=== PATIENT | female | born 1965 | race Caucasian/White ===

== ENCOUNTER 2017-06-16 18:00 | Emergency (ER) | payer MEDICAID ==
[~2017-06-16] VITALS: Ht 152.4 cm; Wt 60.0 kg
[~2017-06-16 18:00] MED LIST: FLUO-124 PO; LORA1TAB PO
[2017-06-16] MEDS ORDERED: LORAZEPAM 1MG TABLET PO ONE (23:45)
[2017-06-16] MEDS ORDERED: MAGNESIUM/ALUMINUM HYDROXIDE/SIMETHICONE 30ML UDC PO ONE (23:45)
[2017-06-17 00:06] LABS: BASOPHILS % 0.8 % (0.0-2.0); CLARITY URINE CLEAR (CLEAR); COLOR URINE YELLOW (YELLOW); EOSINOPHILS % 4.1 % (0.0-5.0); GLUCOSE URINE NEGATIVE (NEGATIVE); HEMOGLOBIN. 13.1 g/dL (12.0-16.0); KETONES URINE NEGATIVE (NEGATIVE); LEUKOCYTE ESTERASE URINE NEGATIVE (NEGATIVE); LYMPHOCYTES % 29.4 % (20.0-50.0); MEAN CORPUSCULAR HEMOGLOBIN 29.9 pg (28.0-32.0); MEAN CORPUSCULAR VOLUME 88.7 fL (81.0-99.0); MEAN PLATELET VOLUME 8.6 fl (7.4-10.4); MONOCYTES % 7.6 % (2.0-8.0); NEUTROPHILS % 58.1 % (40.0-76.0); NITRITE URINE NEGATIVE (NEGATIVE); OCCULT BLOOD URINE NEGATIVE (NEGATIVE); PLATELET 279 x1000/uL (130-400); PROTEIN URINE 3+ (NEGATIVE); RED BLOOD CELL COUNT 4.39 mill/uL (4.2-5.4); RED CELL DISTRIBUTION WIDTH 13.4 % (11.6-14.6); SPECIFIC GRAVITY URINE 1.015 (1.005-1.030); UROBILINOGEN URINE 0.2 E.U./dL (0.2-1.0)
[2017-06-17 00:13] LABS: CHLORIDE 105 mEq/L (98-107)
[2017-06-17 00:22] LABS: CARBON DIOXIDE 30 mEq/L (21-32)
[2017-06-17 01:15] VITALS: BP 109/62
== END 2017-06-17 01:15 | disposition home or self-care (01) ==
LOC: ER 18:00
DX: F41.9 Anxiety disorder, unspecified (principal); R10.13 Epigastric pain; F32.9 Major depressive disorder, single episode, unspecified
CPT/HCPCS: 36415; 80053; 81001; 81003; 85025; 99284

== ENCOUNTER 2019-01-01 15:27 | Emergency (ER) | payer MEDICAID ==
[~2019-01-01] VITALS: Ht 157.5 cm; Wt 53.0 kg
[~2019-01-01 15:27] MED LIST changes: +ACYC200C PO; +ATOR10TA69 PO; +DEXA4TAB PO; +DILT120C88 PO; +GABA-529 PO; +LOPE2CAP PO
[2019-01-01 20:29] VITALS: BP 122/82
== END 2019-01-01 22:30 | disposition left against medical advice (07) ==
LOC: ER 17:09
DX: Z53.21 Procedure and treatment not carried out due to patient leaving prior to being seen by health care provider (principal)

== ENCOUNTER 2019-07-16 11:08 | Inpatient (IN) | payer MEDICAID ==
[~2019-07-16] VITALS: Ht 182.9 cm; Wt 41.7 kg
[2019-07-16 12:25] LABS: BASOPHILS % 1.3 % (0.0-2.0); EOSINOPHILS % 4.7 % (0.0-5.0); HEMATOCRIT. 42.3 % (36.0-48.0); HEMOGLOBIN. 13.8 g/dL (12.0-16.0); LYMPHOCYTES % 10.7 % (20.0-50.0); MEAN CORPUSCULAR HEMOGLOBIN 31.8 pg (28.0-32.0); MEAN CORPUSCULAR VOLUME 97.4 fL (81.0-99.0); MEAN PLATELET VOLUME 8.5 fl (7.4-10.4); MONOCYTES % 8.1 % (2.0-8.0); NEUTROPHILS % 75.2 % (40.0-76.0); PLATELET 277 x1000/uL (130-400); RED BLOOD CELL COUNT 4.34 mill/uL (4.2-5.4)
[2019-07-16 12:28] LABS: CHLORIDE 94 mEq/L (98-107)
[2019-07-16 12:36] LABS: PHOSPHORUS 3.5 mg/dL (2.5-4.9)
[2019-07-16] MEDS ORDERED: IPRATROPIUM BROMIDE (0.02%) 0.5MG/2.5ML NEB HHN STA (13:02)
[2019-07-16] MEDS ORDERED: ALBUTEROL (0.083%) 2.5MG/3ML NEB HHN STA (13:02)
[2019-07-16 16:00] VITALS: BP 134/76
[2019-07-16] MEDS ORDERED: ACETAMINOPHEN 325MG TABLET PO PRN (16:45)
[2019-07-16] MEDS ORDERED: CLONIDINE 0.1MG TABLET PO PRN ×2 (16:45→17:15)
[2019-07-16 16:49] VITALS: BP 134/76
[2019-07-16] MEDS ORDERED: MAGNESIUM/ALUMINUM HYDROXIDE/SIMETHICONE 30ML UDC PO PRN (17:15)
[2019-07-16] MEDS ORDERED: GUAIFENESIN 200MG/10ML SUGAR FREE UDC PO PRN (17:15)
[2019-07-16] MEDS ORDERED: ONDANSETRON HCL 4MG/2ML INJ IV PRN (17:15)
[2019-07-16] MEDS ORDERED: IPRATROPIUM/ALBUTEROL 0.5-3(2.5)MG/3ML NEB NEB PRN (17:15)
[2019-07-16] MEDS ORDERED: PNEUMOCOCCAL 23-VAL P-SAC VAC 0.5 ML IM ONE (17:15)
[2019-07-16 20:00] VITALS: BP 129/85
[2019-07-16] MEDS: DIPHENHYDRAMINE 50MG/ML VIAL IV PRN (20:32)
[2019-07-16] MEDS: SODIUM CHLORIDE 0.9% INJ 3ML FLUSH IVF SCH (20:32)
[2019-07-17] VITALS: BP 132/78
[2019-07-17 04:00] VITALS: BP 131/83
[2019-07-17] MEDS: DIPHENHYDRAMINE 50MG/ML VIAL IV PRN ×2 (05:49→20:35)
[2019-07-17] MEDS: SODIUM CHLORIDE 0.9% INJ 3ML FLUSH IVF SCH ×3 (05:49→20:36)
[2019-07-17 07:32] LABS: BASOPHILS % 1.1 % (0.0-2.0); EOSINOPHILS % 5.4 % (0.0-5.0); HEMATOCRIT. 36.8 % (36.0-48.0); HEMOGLOBIN. 12.2 g/dL (12.0-16.0); LYMPHOCYTES % 14.7 % (20.0-50.0); MEAN CORPUSCULAR HEMOGLOBIN 32.1 pg (28.0-32.0); MEAN CORPUSCULAR VOLUME 97.1 fL (81.0-99.0); MEAN PLATELET VOLUME 8.3 fl (7.4-10.4); MONOCYTES % 8.1 % (2.0-8.0); NEUTROPHILS % 70.7 % (40.0-76.0); PLATELET 245 x1000/uL (130-400); RED BLOOD CELL COUNT 3.79 mill/uL (4.2-5.4); RED CELL DISTRIBUTION WIDTH 16.2 % (11.6-14.6)
[2019-07-17 07:51] LABS: PHOSPHORUS 4.8 mg/dL (2.5-4.9)
[2019-07-17 08:00] VITALS: BP 122/78
[2019-07-17] MEDS ORDERED: POLY15DR33 EACHEYE (10:27)
[2019-07-17] MEDS ORDERED: ESOM20CA37 MT (10:27)
[2019-07-17] MEDS ORDERED: ONDA8TAB13 MT (10:27)
[2019-07-17] MEDS ORDERED: LORA0.5T2 MT (10:27)
[2019-07-17] MEDS ORDERED: ACYC200C MT (10:27)
[2019-07-17] MEDS ORDERED: ROPI0.5T MT (10:27)
[2019-07-17] MEDS ORDERED: MIDO5TAB MT (10:27)
[2019-07-17] MEDS ORDERED: B25 MT (10:27)
[2019-07-17] MEDS ORDERED: LOPE2CAP MT (10:27)
[2019-07-17] MEDS ORDERED: SUCR1TAB30 MT (10:29)
[2019-07-17 11:59] VITALS: BP 124/89
[2019-07-17 12:49] LABS: INR 1.1; PARTIAL THROMBOPLASTIN TIME 26.8 sec (23.4-31.0); PROTHROMBIN TIME 11.3 sec (9.6-11.0)
[2019-07-17 16:00] VITALS: BP 128/81
[2019-07-17 20:00] VITALS: BP 136/89
[2019-07-17] MEDS: ACETAMINOPHEN 325MG TABLET PO PRN (20:35)
[2019-07-18] VITALS: BP 122/87
[2019-07-18] MEDS: DIPHENHYDRAMINE 50MG/ML VIAL IV PRN ×2 (00:35→08:11)
[2019-07-18] MEDS: ACETAMINOPHEN 325MG TABLET PO PRN ×2 (00:35→12:46)
[2019-07-18 04:00] VITALS: BP 137/88
[2019-07-18] MEDS: SODIUM CHLORIDE 0.9% INJ 3ML FLUSH IVF SCH ×2 (06:08→14:11)
[2019-07-18 08:00] VITALS: BP 133/90
[2019-07-18] MEDS ORDERED: SODIUM BICARBONATE 4% (2.4MEQ) 5ML VIAL IV ONE (08:46)
[2019-07-18 11:56] VITALS: BP 124/82
[2019-07-18 15:35] VITALS: BP 124/82
== END 2019-07-18 16:28 | disposition home or self-care (01) | DRG 721 ==
LOC: ER 11:08 → 8WST 13:18 → EDBEDREQ 13:21 → ENRESERV 14:51
PROVIDERS: ADMIT Internal Medicine; ATTEND Internal Medicine
PROC: 5A1D70Z Performance of Urinary Filtration, Intermittent, Less than 6 Hours Per Day (ICD-10-PCS; 2019-07-17)
PROC: 0W9B3ZZ Drainage of Left Pleural Cavity, Percutaneous Approach (ICD-10-PCS; principal; 2019-07-18)
DX: T80.211A Bloodstream infection due to central venous catheter, initial encounter (principal); J96.90 Respiratory failure, unspecified, unspecified whether with hypoxia or hypercapnia; I13.2 Hypertensive heart and chronic kidney disease with heart failure and with stage 5 chronic kidney disease, or end stage renal disease; I42.5 Other restrictive cardiomyopathy; E87.1 Hypo-osmolality and hyponatremia; E85.4 Organ-limited amyloidosis; Y83.8 Other surgical procedures as the cause of abnormal reaction of the patient, or of later complication, without mention of misadventure at the time of the procedure; Y92.89 Other specified places as the place of occurrence of the external cause; J45.909 Unspecified asthma, uncomplicated; I50.9 Heart failure, unspecified; F41.9 Anxiety disorder, unspecified; N08 Glomerular disorders in diseases classified elsewhere; N18.6 End stage renal disease; N25.81 Secondary hyperparathyroidism of renal origin; Z82.49 Family history of ischemic heart disease and other diseases of the circulatory system; Z99.2 Dependence on renal dialysis; F32.9 Major depressive disorder, single episode, unspecified; E21.3 Hyperparathyroidism, unspecified
CPT/HCPCS: 32555; 36415; 71045; 71250; 80048; 83615; 83735; 84100; 84484; 88108; 93005; 93970; 94640; 99285; J1200; J3490; J7611

== ENCOUNTER 2020-11-10 21:05 | Emergency (ER) | payer MEDICAID ==
[~2020-11-10] VITALS: Ht 152.4 cm; Wt 44.0 kg
[~2020-11-10 21:05] MED LIST changes: +ACYC200C MT; -ACYC200C PO; -ATOR10TA69 PO; +B25 MT; -DEXA4TAB PO; -DILT120C88 PO; +ESOM20CA37 MT; -FLUO-124 PO; +LOPE2CAP MT; -LOPE2CAP PO; +LORA0.5T2 MT; -LORA1TAB PO; +MIDO5TAB4 MT; +ONDA8TAB13 MT; +POLY15DR33 EACHEYE; +ROPI0.5T6 MT; +SUCR1TAB30 MT
[2020-11-10] MEDS ORDERED: TRAMADOL 50MG TABLET PO ONE (22:45)
[2020-11-10 23:38] VITALS: BP 162/87
[2020-11-11 00:11] LABS: BASOPHILS % 0.9 % (0.0-2.0); EOSINOPHILS % 4.4 % (0.0-5.0); HEMATOCRIT. 31.5 % (36.0-48.0); HEMOGLOBIN. 10.5 g/dL (12.0-16.0); LYMPHOCYTES % 13.5 % (20.0-50.0); MEAN CORPUSCULAR HEMOGLOBIN 33.3 pg (28.0-32.0); MEAN PLATELET VOLUME 9.4 fl (7.4-10.4); MONOCYTES % 10.2 % (2.0-8.0); PLATELET 187 x1000/uL (130-400); RED BLOOD CELL COUNT 3.15 mill/uL (4.2-5.4); RED CELL DISTRIBUTION WIDTH 14.3 % (11.6-14.6)
[2020-11-11 00:23] LABS: CHLORIDE 99 mEq/L (98-107)
== END 2020-11-11 01:02 | disposition home or self-care (01) ==
LOC: ER 21:05
DX: M25.512 Pain in left shoulder (principal); R07.89 Other chest pain; M79.631 Pain in right forearm; R51.9 Headache, unspecified; N18.6 End stage renal disease; K76.9 Liver disease, unspecified; Z85.89 Personal history of malignant neoplasm of other organs and systems; Z92.21 Personal history of antineoplastic chemotherapy; Z99.2 Dependence on renal dialysis; W07.XXXA Fall from chair, initial encounter; Y93.89 Activity, other specified; Y92.018 Other place in single-family (private) house as the place of occurrence of the external cause
CPT/HCPCS: 36415; 71045; 73030; 73090; 73521; 80053; 85025; 93005; 99285

== ENCOUNTER 2021-02-19 13:51 | Inpatient (IN) | payer MEDICAID ==
[~2021-02-19] VITALS: Ht 160 cm; Wt 41.8 kg
[2021-02-19] MEDS ORDERED: ACETAMINOPHEN 325MG TABLET PO ONE (14:30)
[2021-02-19 15:38] LABS: BASOPHILS % 1.3 % (0.0-2.0); EOSINOPHILS % 3.5 % (0.0-5.0); HEMATOCRIT. 31.6 % (36.0-48.0); HEMOGLOBIN. 10.9 g/dL (12.0-16.0); LYMPHOCYTES % 14.5 % (20.0-50.0); MEAN CORPUSCULAR HEMOGLOBIN 34.8 pg (28.0-32.0); MEAN CORPUSCULAR VOLUME 100.8 fL (81.0-99.0); MEAN PLATELET VOLUME 10.2 fl (7.4-10.4); MONOCYTES % 10.8 % (2.0-8.0); NEUTROPHILS % 69.9 % (40.0-76.0); PLATELET 149 x1000/uL (130-400); RED BLOOD CELL COUNT 3.13 mill/uL (4.2-5.4); RED CELL DISTRIBUTION WIDTH 13.3 % (11.6-14.6)
[2021-02-19 15:43] LABS: CHLORIDE 104 mEq/L (98-107)
[2021-02-19] MEDS ORDERED: LEVOFLOXACIN 750MG PREMIX 150 ML IV ONE (16:15)
[2021-02-19] MEDS ORDERED: METRONIDAZOLE 500 MG PREMIX 100 ML IV ONE (16:15)
[2021-02-19 20:29] LABS: CLARITY URINE CLEAR (CLEAR); COLOR URINE YELLOW (YELLOW); KETONES URINE NEGATIVE (NEGATIVE); LEUKOCYTE ESTERASE URINE NEGATIVE (NEGATIVE); NITRITE URINE NEGATIVE (NEGATIVE); OCCULT BLOOD URINE 1+ (NEGATIVE); PH URINE 7.5 (4.5-8.0); PROTEIN URINE 3+ (NEGATIVE); UROBILINOGEN URINE 0.2 E.U./dL (0.2-1.0)
[2021-02-20] VITALS: BP 141/90
[2021-02-20] MEDS ORDERED: METRONIDAZOLE 500 MG PREMIX 100 ML IV SCH (01:00)
[2021-02-20] MEDS ORDERED: IPRATROPIUM/ALBUTEROL 0.5-3(2.5)MG/3ML NEB HHN PRN (13:15)
[2021-02-20] MEDS ORDERED: LORAZEPAM 0.5MG TABLET PO PRN (13:15)
[2021-02-20] MEDS ORDERED: HYDROCODONE/ACETAMINOPHEN 5/325MG TABLET PO PRN (13:15)
[2021-02-20] MEDS ORDERED: ACETAMINOPHEN 325MG TABLET PO PRN ×2 (13:15)
[2021-02-20] MEDS ORDERED: DOCUSATE SODIUM 100MG CAPSULE PO PRN (13:15)
[2021-02-20] MEDS ORDERED: CLONIDINE 0.1MG TABLET PO PRN (13:15)
[2021-02-20 14:41] LABS: INR 1.1; PROTHROMBIN TIME 11.4 sec (9.6-11.0)
[2021-02-20 18:17] LABS: HEPATITIS B SURFACE ANTIGEN NEGATIVE
[2021-02-20 18:47] LABS: HEPATITIS A AB IGM NEGATIVE (NEGATIVE)
[2021-02-20] MEDS ORDERED: CEFTRIAXONE 1 G PREMIX 50 ML IV SCH (20:00)
[2021-02-20 21:13] VITALS: BP 141/90
[2021-02-20] MEDS ORDERED: HEPARIN SODIUM 1,000 UNIT/1ML VIAL IV NR (21:18)
[2021-02-20] MEDS: SUCRALFATE 1G TABLET PO SCH (23:37)
[2021-02-20] MEDS: MIDODRINE HCL 5MG TABLET PO SCH (23:38)
[2021-02-20] MEDS: ROPINIROLE HCL 1MG TABLET PO SCH (23:59)
[2021-02-21] VITALS (7 sets, daily range): BP systolic 102–159; BP diastolic 54–92
[2021-02-21] MEDS: ONDANSETRON HCL 4MG/2ML INJ IV PRN ×2 (01:07→07:07)
[2021-02-21] MEDS: METRONIDAZOLE 500 MG PREMIX 100 ML IV SCH ×2 (01:47→09:41)
[2021-02-21] MEDS: MIDODRINE HCL 5MG TABLET PO SCH (05:29)
[2021-02-21] MEDS: ROPINIROLE HCL 1MG TABLET PO SCH ×2 (05:30→15:54)
[2021-02-21 07:26] LABS: BASOPHILS % 1.2 % (0.0-2.0); EOSINOPHILS % 2.6 % (0.0-5.0); HEMATOCRIT. 32.6 % (36.0-48.0); HEMOGLOBIN. 11.2 g/dL (12.0-16.0); LYMPHOCYTES % 14.2 % (20.0-50.0); MEAN CORPUSCULAR HEMOGLOBIN 34.1 pg (28.0-32.0); MEAN CORPUSCULAR VOLUME 99.6 fL (81.0-99.0); MEAN PLATELET VOLUME 10.5 fl (7.4-10.4); MONOCYTES % 6.1 % (2.0-8.0); NEUTROPHILS % 75.9 % (40.0-76.0); PLATELET 148 x1000/uL (130-400); RED BLOOD CELL COUNT 3.27 mill/uL (4.2-5.4); RED CELL DISTRIBUTION WIDTH 13.5 % (11.6-14.6)
[2021-02-21 07:40] LABS: FERRITIN 783 ng/mL (10-291)
[2021-02-21 07:53] LABS: VITAMIN B12 SERUM >2000 pg/mL pg/mL (211-911)
[2021-02-21 08:15] LABS: PHOSPHORUS 4.4 mg/dL (2.5-4.9)
[2021-02-21] MEDS: SUCRALFATE 1G TABLET PO SCH ×2 (08:27→15:12)
[2021-02-21] MEDS: GABAPENTIN 100MG CAPSULE PO SCH ×2 (08:27→15:12)
[2021-02-21] MEDS ORDERED: CEFTRIAXONE 1,000 MG in DEXTROSE 5% WATER 50 ML IV SCH (20:00)
== END 2021-02-21 17:30 | disposition home or self-care (01) | DRG 249 ==
LOC: ER 13:51 → EDBEDREQ 19:26 → ENRESERV 02-20 19:07 → 7WST 02-20 19:23 → 5WST 02-21 13:26
PROVIDERS: ADMIT Internal Medicine; ATTEND Internal Medicine
PROC: 5A1D70Z Performance of Urinary Filtration, Intermittent, Less than 6 Hours Per Day (ICD-10-PCS; 2021-02-20)
PROC: 0W9B3ZZ Drainage of Left Pleural Cavity, Percutaneous Approach (ICD-10-PCS; principal; 2021-02-21)
PROC: 5A1D70Z Performance of Urinary Filtration, Intermittent, Less than 6 Hours Per Day (ICD-10-PCS; 2021-02-21)
DX: K52.9 Noninfective gastroenteritis and colitis, unspecified (principal); J90 Pleural effusion, not elsewhere classified; C96.9 Malignant neoplasm of lymphoid, hematopoietic and related tissue, unspecified; R78.81 Bacteremia; E85.4 Organ-limited amyloidosis; N25.81 Secondary hyperparathyroidism of renal origin; E83.52 Hypercalcemia; E88.09 Other disorders of plasma-protein metabolism, not elsewhere classified; I25.10 Atherosclerotic heart disease of native coronary artery without angina pectoris; I42.5 Other restrictive cardiomyopathy; N18.6 End stage renal disease; K76.9 Liver disease, unspecified; D53.9 Nutritional anemia, unspecified; G25.81 Restless legs syndrome; Z20.822 Contact with and (suspected) exposure to COVID-19; I12.0 Hypertensive chronic kidney disease with stage 5 chronic kidney disease or end stage renal disease; Z99.2 Dependence on renal dialysis; Z82.49 Family history of ischemic heart disease and other diseases of the circulatory system; I31.3 Pericardial effusion (noninflammatory); K29.70 Gastritis, unspecified, without bleeding
CPT/HCPCS: 32555; 36415; 71045; 74176; 76604; 80048; 80053; 81003; 82270; 82607; 82728; 82746; 82962; 83540; 83550; 83605; 83735; 83880; 84100; 84484; 85025; 86705; 86709; 86803; 87340; 93005; 96365; 96366; 96368; 99285; J0696; J1644; J1956; J2405; J3490; J7060; U0003; U0005

== ENCOUNTER 2022-03-19 09:42 | Inpatient (IN) | payer MEDICAID, OTHER ==
[~2022-03-19] VITALS: Ht 152.4 cm; Wt 43.5 kg
[~2022-03-19 09:42] MED LIST changes: -ACYC200C MT; +ACYC200C31 MT
[2022-03-19 11:10] LABS: HEMATOCRIT. 26.6 % (36.0-48.0); HEMOGLOBIN. 8.8 g/dL (12.0-16.0); MEAN CORPUSCULAR HEMOGLOBIN 31.7 pg (28.0-32.0); MEAN CORPUSCULAR VOLUME 95.9 fL (81.0-99.0); MEAN PLATELET VOLUME 9.9 fl (7.4-10.4); PLATELET 284 x1000/uL (130-400); RED BLOOD CELL COUNT 2.78 mill/uL (4.2-5.4); RED CELL DISTRIBUTION WIDTH 14.5 % (11.6-14.6)
[2022-03-19 11:20] LABS: CHLORIDE 99 mEq/L (98-107)
[2022-03-19 11:21] LABS: INR 1.1; PROTHROMBIN TIME 11.4 sec (9.6-11.0)
[2022-03-19] MEDS ORDERED: PIPERACILLIN/TAZ 3.375G PREMIX 50 ML IV ONE (12:15)
[2022-03-19] MEDS ORDERED: VANCOMYCIN 1G PREMIX 200 ML IV ONE (12:15)
[2022-03-19 14:10] LABS: PLATELET ESTIMATE NORMAL
[2022-03-19] MEDS ORDERED: ZOLPIDEM TARTRATE 5MG TABLET PO PRN (15:30)
[2022-03-19] MEDS ORDERED: ACETAMINOPHEN 325MG TABLET PO PRN (15:30)
[2022-03-19] MEDS ORDERED: DIPHENHYDRAMINE 50MG/ML VIAL IV PRN (15:30)
[2022-03-19] MEDS ORDERED: CLONIDINE 0.1MG TABLET PO PRN (15:30)
[2022-03-19] MEDS ORDERED: ONDANSETRON HCL 4MG/2ML INJ IV PRN (15:30)
[2022-03-19] MEDS ORDERED: IPRATROPIUM/ALBUTEROL 0.5-3(2.5)MG/3ML NEB HHN PRN (15:30)
[2022-03-19 16:33] VITALS: BP 107/54
[2022-03-19] MEDS: MIDODRINE HCL 5MG TABLET PO SCH (17:16)
[2022-03-19] MEDS ORDERED: GENTAMICIN 120MG PREMIX 100 ML IV SCH (21:00)
[2022-03-19 22:00] VITALS: BP 96/47
[2022-03-19] MEDS: GABAPENTIN 100MG CAPSULE PO SCH (22:07)
[2022-03-19] MEDS: SODIUM CHLORIDE 0.9% INJ 3ML FLUSH IVF SCH (22:07)
[2022-03-19] MEDS: ROPINIROLE HCL 1MG TABLET PO SCH (22:08)
[2022-03-19 22:15] LABS: HEPATITIS B SURFACE ANTIGEN NEGATIVE
[2022-03-20 06:00] VITALS: BP 94/53
[2022-03-20] MEDS: GABAPENTIN 100MG CAPSULE PO SCH ×3 (06:07→23:05)
[2022-03-20] MEDS: ROPINIROLE HCL 1MG TABLET PO SCH ×3 (06:07→23:06)
[2022-03-20] MEDS: SODIUM CHLORIDE 0.9% INJ 3ML FLUSH IVF SCH ×3 (06:08→23:06)
[2022-03-20] MEDS: ACETAMINOPHEN 325MG TABLET PO PRN (06:08)
[2022-03-20 07:13] LABS: HEMATOCRIT. 24.2 % (36.0-48.0); MEAN CORPUSCULAR HEMOGLOBIN 31.3 pg (28.0-32.0); MEAN PLATELET VOLUME 10.1 fl (7.4-10.4); PLATELET 323 x1000/uL (130-400); RED BLOOD CELL COUNT 2.55 mill/uL (4.2-5.4); RED CELL DISTRIBUTION WIDTH 15.1 % (11.6-14.6)
[2022-03-20 08:00] VITALS: BP 104/52
[2022-03-20] MEDS: MIDODRINE HCL 5MG TABLET PO SCH ×3 (09:00→17:00)
[2022-03-20 12:00] VITALS: BP 108/50
[2022-03-20 16:00] VITALS: BP 102/52
[2022-03-20] MEDS: CEFAZOLIN 2,000 MG in DEXT 5% WATER 100 ML IV SCH (18:14)
[2022-03-20 20:00] VITALS: BP 106/56
[2022-03-20] MEDS ORDERED: EPOETIN ALFA 10000UNITS/ML VIAL SUBCUT SCH (21:00)
[2022-03-21] VITALS: BP 112/58
[2022-03-21 04:00] VITALS: BP 106/55
[2022-03-21 05:47] LABS: PLATELET ESTIMATE NORMAL
[2022-03-21] MEDS: SODIUM CHLORIDE 0.9% INJ 3ML FLUSH IVF SCH ×3 (06:00→21:45)
[2022-03-21] MEDS: GABAPENTIN 100MG CAPSULE PO SCH ×3 (06:47→21:44)
[2022-03-21] MEDS: ROPINIROLE HCL 1MG TABLET PO SCH ×3 (06:47→21:45)
[2022-03-21] MEDS: MIDODRINE HCL 5MG TABLET PO SCH ×3 (09:32→16:29)
[2022-03-21] MEDS ORDERED: LIDOCAINE HCL 1% 10 MG/ML 10ML VIAL ONE (11:10)
[2022-03-21 12:00] VITALS: BP 119/57
[2022-03-21 13:16] LABS: BASOPHILS % 0.8 % (0.0-2.0); EOSINOPHILS % 1.1 % (0.0-5.0); HEMATOCRIT. 23.1 % (36.0-48.0); HEMOGLOBIN. 7.8 g/dL (12.0-16.0); LYMPHOCYTES % 7.6 % (20.0-50.0); MEAN CORPUSCULAR HEMOGLOBIN 32.5 pg (28.0-32.0); MEAN CORPUSCULAR VOLUME 95.8 fL (81.0-99.0); MEAN PLATELET VOLUME 9.5 fl (7.4-10.4); MONOCYTES % 11.2 % (2.0-8.0); NEUTROPHILS % 79.3 % (40.0-76.0); PLATELET 360 x1000/uL (130-400); RED BLOOD CELL COUNT 2.41 mill/uL (4.2-5.4)
[2022-03-21 16:00] VITALS: BP 121/55
[2022-03-21] MEDS: DEXAMETHASONE 10 MG/ML VIAL IV SCH (17:54)
[2022-03-21] MEDS: CEFAZOLIN 2,000 MG in DEXT 5% WATER 100 ML IV SCH (17:55)
[2022-03-21 20:00] VITALS: BP 115/50
[2022-03-22] VITALS: BP 124/64
[2022-03-22 04:00] VITALS: BP 103/49
[2022-03-22] MEDS: SODIUM CHLORIDE 0.9% INJ 3ML FLUSH IVF SCH ×3 (04:57→20:41)
[2022-03-22] MEDS: GABAPENTIN 100MG CAPSULE PO SCH ×3 (04:57→20:39)
[2022-03-22] MEDS: ROPINIROLE HCL 1MG TABLET PO SCH ×4 (04:57→20:40)
[2022-03-22 07:32] LABS: HEMATOCRIT. 30.4 % (36.0-48.0); HEMOGLOBIN. 10.1 g/dL (12.0-16.0); MEAN CORPUSCULAR HEMOGLOBIN 31.9 pg (28.0-32.0); MEAN PLATELET VOLUME 9.4 fl (7.4-10.4); PLATELET 519 x1000/uL (130-400); RED BLOOD CELL COUNT 3.17 mill/uL (4.2-5.4); RED CELL DISTRIBUTION WIDTH 14.7 % (11.6-14.6)
[2022-03-22 08:00] VITALS: BP 98/53
[2022-03-22 08:28] LABS: PHOSPHORUS 5.5 mg/dL (2.5-4.9)
[2022-03-22] MEDS: DEXAMETHASONE 10 MG/ML VIAL IV SCH (08:53)
[2022-03-22] MEDS ORDERED: DEXAMETHASONE 10 MG/ML VIAL IV SCH (09:00)
[2022-03-22] MEDS: MIDODRINE HCL 5MG TABLET PO SCH ×3 (09:05→17:00)
[2022-03-22] MEDS ORDERED: LIDOCAINE HCL 1% 10 MG/ML 10ML VIAL ONE (10:35)
[2022-03-22 12:00] VITALS: BP 101/56
[2022-03-22 16:00] VITALS: BP 114/59
[2022-03-22] MEDS: CEFAZOLIN 2,000 MG in DEXT 5% WATER 100 ML IV SCH (18:37)
[2022-03-22 20:00] VITALS: BP 136/61
[2022-03-23] VITALS: BP 117/63
[2022-03-23 04:00] VITALS: BP 120/60
[2022-03-23] MEDS: GABAPENTIN 100MG CAPSULE PO SCH ×3 (06:41→22:19)
[2022-03-23] MEDS: ROPINIROLE HCL 1MG TABLET PO SCH ×3 (06:41→22:19)
[2022-03-23] MEDS: SODIUM CHLORIDE 0.9% INJ 3ML FLUSH IVF SCH ×3 (06:42→22:21)
[2022-03-23 07:43] LABS: HEMATOCRIT. 28.1 % (36.0-48.0); HEMOGLOBIN. 9.2 g/dL (12.0-16.0); MEAN CORPUSCULAR HEMOGLOBIN 31.7 pg (28.0-32.0); MEAN CORPUSCULAR VOLUME 96.1 fL (81.0-99.0); MEAN PLATELET VOLUME 9.4 fl (7.4-10.4); PLATELET 490 x1000/uL (130-400); RED BLOOD CELL COUNT 2.92 mill/uL (4.2-5.4); RED CELL DISTRIBUTION WIDTH 14.8 % (11.6-14.6)
[2022-03-23 08:00] VITALS: BP 128/71
[2022-03-23 08:03] LABS: PHOSPHORUS 4.4 mg/dL (2.5-4.9)
[2022-03-23] MEDS: MIDODRINE HCL 5MG TABLET PO SCH ×3 (08:54→17:59)
[2022-03-23] MEDS: DEXAMETHASONE 10 MG/ML VIAL IV SCH (08:54)
[2022-03-23 09:02] LABS: PLATELET ESTIMATE INCREASED
[2022-03-23 12:00] VITALS: BP 117/66
[2022-03-23 15:19] LABS: PLATELET ESTIMATE INCREASED
[2022-03-23 16:00] VITALS: BP 129/67
[2022-03-23] MEDS: CEFAZOLIN 2,000 MG in DEXT 5% WATER 100 ML IV SCH (17:59)
[2022-03-24] VITALS: BP 137/66
[2022-03-24 04:00] VITALS: BP 130/65
[2022-03-24] MEDS: SODIUM CHLORIDE 0.9% INJ 3ML FLUSH IVF SCH ×3 (06:03→21:22)
[2022-03-24] MEDS: GABAPENTIN 100MG CAPSULE PO SCH ×3 (06:03→21:22)
[2022-03-24] MEDS: ROPINIROLE HCL 1MG TABLET PO SCH ×3 (06:03→21:22)
[2022-03-24 08:00] VITALS: BP 139/70
[2022-03-24] MEDS: MIDODRINE HCL 5MG TABLET PO SCH ×3 (09:00→17:42)
[2022-03-24] MEDS: DEXAMETHASONE 10 MG/ML VIAL IV SCH (09:10)
[2022-03-24 12:00] VITALS: BP 132/72
[2022-03-24 16:00] VITALS: BP 114/66
[2022-03-24] MEDS: CEFAZOLIN 2,000 MG in DEXT 5% WATER 100 ML IV SCH (17:42)
[2022-03-24 20:00] VITALS: BP 125/70
[2022-03-25] VITALS: BP 121/66
[2022-03-25 04:00] VITALS: BP 124/76
[2022-03-25] MEDS: MAGNESIUM/ALUMINUM HYDROXIDE/SIMETHICONE 30ML UDC PO PRN ×2 (04:24→22:31)
[2022-03-25] MEDS: ROPINIROLE HCL 1MG TABLET PO SCH ×3 (05:22→22:25)
[2022-03-25] MEDS: GABAPENTIN 100MG CAPSULE PO SCH ×3 (05:22→22:25)
[2022-03-25] MEDS: SODIUM CHLORIDE 0.9% INJ 3ML FLUSH IVF SCH ×3 (05:22→22:00)
[2022-03-25 06:54] LABS: PHOSPHORUS 5.3 mg/dL (2.5-4.9)
[2022-03-25 07:07] LABS: HEMOGLOBIN. 9.6 g/dL (12.0-16.0); MEAN CORPUSCULAR HEMOGLOBIN 32.1 pg (28.0-32.0); MEAN CORPUSCULAR VOLUME 96.2 fL (81.0-99.0); MEAN PLATELET VOLUME 9.4 fl (7.4-10.4); PLATELET 475 x1000/uL (130-400); RED BLOOD CELL COUNT 3.01 mill/uL (4.2-5.4); RED CELL DISTRIBUTION WIDTH 15.4 % (11.6-14.6)
[2022-03-25 08:00] VITALS: BP 135/80
[2022-03-25] MEDS: MIDODRINE HCL 5MG TABLET PO SCH ×3 (09:00→17:00)
[2022-03-25] MEDS: DEXAMETHASONE 10 MG/ML VIAL IV SCH (09:33)
[2022-03-25 12:00] VITALS: BP 131/78
[2022-03-25 16:00] VITALS: BP 130/68
[2022-03-25 20:00] VITALS: BP 127/79
[2022-03-25] MEDS ORDERED: EPOETIN ALFA 10000UNITS/ML VIAL SUBCUT SCH (21:30)
[2022-03-26] VITALS: BP 131/75
[2022-03-26 04:00] VITALS: BP 161/85
[2022-03-26] MEDS: SODIUM CHLORIDE 0.9% INJ 3ML FLUSH IVF SCH ×3 (05:28→21:27)
[2022-03-26] MEDS: GABAPENTIN 100MG CAPSULE PO SCH ×3 (06:50→21:26)
[2022-03-26] MEDS: ROPINIROLE HCL 1MG TABLET PO SCH ×3 (06:50→21:26)
[2022-03-26 08:00] VITALS: BP 152/67
[2022-03-26 08:35] LABS: PLATELET ESTIMATE INCREASED
[2022-03-26] MEDS: MIDODRINE HCL 5MG TABLET PO SCH ×3 (09:00→17:00)
[2022-03-26] MEDS: ACETAMINOPHEN 325MG TABLET PO PRN (09:21)
[2022-03-26 12:00] VITALS: BP 127/67
[2022-03-26 16:00] VITALS: BP 139/72
[2022-03-26 20:00] VITALS: BP 115/70
[2022-03-26] MEDS: PANTOPRAZOLE 40MG DR TABLET PO SCH (21:26)
[2022-03-27] VITALS: BP 135/65
[2022-03-27 04:00] VITALS: BP 137/73
[2022-03-27] MEDS: GABAPENTIN 100MG CAPSULE PO SCH ×3 (05:42→21:17)
[2022-03-27] MEDS: ROPINIROLE HCL 1MG TABLET PO SCH ×3 (05:42→21:17)
[2022-03-27] MEDS: SODIUM CHLORIDE 0.9% INJ 3ML FLUSH IVF SCH ×3 (05:42→21:17)
[2022-03-27 05:49] LABS: HEMATOCRIT. 27.2 % (36.0-48.0); HEMOGLOBIN. 8.9 g/dL (12.0-16.0); MEAN CORPUSCULAR HEMOGLOBIN 32.1 pg (28.0-32.0); MEAN CORPUSCULAR VOLUME 97.8 fL (81.0-99.0); MEAN PLATELET VOLUME 8.9 fl (7.4-10.4); PLATELET 420 x1000/uL (130-400); RED BLOOD CELL COUNT 2.78 mill/uL (4.2-5.4); RED CELL DISTRIBUTION WIDTH 15.9 % (11.6-14.6)
[2022-03-27 06:14] LABS: PHOSPHORUS 5.4 mg/dL (2.5-4.9)
[2022-03-27 06:45] LABS: PLATELET ESTIMATE INCREASED
[2022-03-27 08:21] VITALS: BP 153/68
[2022-03-27] MEDS: ACETAMINOPHEN 325MG TABLET PO PRN ×2 (08:28→09:37)
[2022-03-27] MEDS: PANTOPRAZOLE 40MG DR TABLET PO SCH ×2 (08:28→21:17)
[2022-03-27] MEDS: MIDODRINE HCL 5MG TABLET PO SCH ×3 (08:30→17:00)
[2022-03-27 12:00] VITALS: BP 133/67
[2022-03-27 16:00] VITALS: BP 128/76
[2022-03-27 20:00] VITALS: BP 145/80
[2022-03-28] VITALS (16 sets, daily range): BP systolic 118–175; BP diastolic 46–82
[2022-03-28] MEDS: GABAPENTIN 100MG CAPSULE PO SCH ×3 (06:10→22:23)
[2022-03-28] MEDS: SODIUM CHLORIDE 0.9% INJ 3ML FLUSH IVF SCH ×3 (06:10→22:23)
[2022-03-28] MEDS: ROPINIROLE HCL 1MG TABLET PO SCH ×3 (06:10→22:23)
[2022-03-28 07:47] LABS: HEMATOCRIT. 25.4 % (36.0-48.0); HEMOGLOBIN. 8.3 g/dL (12.0-16.0); MEAN CORPUSCULAR HEMOGLOBIN 32.5 pg (28.0-32.0); MEAN CORPUSCULAR VOLUME 99.3 fL (81.0-99.0); PLATELET 389 x1000/uL (130-400); RED BLOOD CELL COUNT 2.56 mill/uL (4.2-5.4); RED CELL DISTRIBUTION WIDTH 16.2 % (11.6-14.6)
[2022-03-28 08:35] LABS: PHOSPHORUS 4.2 mg/dL (2.5-4.9)
[2022-03-28] MEDS ORDERED: FENTANYL CITRATE/PF 50MCG/ML 2ML VIAL ONE (08:38)
[2022-03-28] MEDS ORDERED: LIDOCAINE HCL/EPINEPHRINE 1%-EPI 1:100,000 20 ML VIAL ONE (08:38)
[2022-03-28] MEDS ORDERED: LIDOCAINE HCL 1% 10 MG/ML 10ML VIAL ONE (08:38)
[2022-03-28] MEDS: PANTOPRAZOLE 40MG DR TABLET PO SCH ×2 (08:40→20:26)
[2022-03-28] MEDS: MIDODRINE HCL 5MG TABLET PO SCH ×3 (08:42→17:13)
[2022-03-28] MEDS ORDERED: CEFAZOLIN 1000MG PREMIX 50 ML IV SCH (08:45)
[2022-03-28] MEDS ORDERED: FENTANYL CITRATE/PF 50MCG/ML 2ML VIAL IV NR (09:30)
[2022-03-28 14:03] LABS: PLATELET ESTIMATE NORMAL
[2022-03-28] MEDS: MAGNESIUM/ALUMINUM HYDROXIDE/SIMETHICONE 30ML UDC PO PRN (14:51)
[2022-03-28] MEDS ORDERED: HYDROCODONE/ACETAMINOPHEN 10/325MG TABLET PO PRN (20:15)
[2022-03-28] MEDS ORDERED: NALOXONE HCL 0.4MG/ML VIAL IV PRN (20:15)
[2022-03-29 00:20] VITALS: BP 164/67
[2022-03-29 04:00] VITALS: BP 149/68
[2022-03-29] MEDS: GABAPENTIN 100MG CAPSULE PO SCH ×2 (05:36→13:50)
[2022-03-29] MEDS: SODIUM CHLORIDE 0.9% INJ 3ML FLUSH IVF SCH ×2 (05:36→14:07)
[2022-03-29] MEDS: PANTOPRAZOLE 40MG DR TABLET PO SCH (05:36)
[2022-03-29] MEDS: ROPINIROLE HCL 1MG TABLET PO SCH ×2 (05:36→13:50)
[2022-03-29 07:15] LABS: HEMATOCRIT. 24.8 % (36.0-48.0); HEMOGLOBIN. 8.1 g/dL (12.0-16.0); MEAN CORPUSCULAR HEMOGLOBIN 32.2 pg (28.0-32.0); MEAN CORPUSCULAR VOLUME 98.9 fL (81.0-99.0); MEAN PLATELET VOLUME 9.1 fl (7.4-10.4); PLATELET 390 x1000/uL (130-400); RED BLOOD CELL COUNT 2.51 mill/uL (4.2-5.4); RED CELL DISTRIBUTION WIDTH 16.1 % (11.6-14.6)
[2022-03-29 07:48] LABS: PHOSPHORUS 5.7 mg/dL (2.5-4.9)
[2022-03-29 08:00] VITALS: BP 151/76
[2022-03-29 12:00] VITALS: BP 115/75
[2022-03-29 12:54] LABS: PLATELET ESTIMATE NORMAL
[2022-03-29] MEDS: MIDODRINE HCL 5MG TABLET PO SCH (13:50)
[2022-03-29 14:14] VITALS: BP 118/64
[2022-03-29 16:00] VITALS: BP 122/64
== END 2022-03-29 16:20 | disposition home or self-care (01) | DRG 721 ==
LOC: ER 09:42 → 7WST 12:30 → ENRESERV 15:21 → 7EST 03-20 21:50 → 7WST 03-25 16:27
PROVIDERS: ADMIT Internal Medicine; ATTEND Internal Medicine
PROC: 5A1D70Z Performance of Urinary Filtration, Intermittent, Less than 6 Hours Per Day (ICD-10-PCS; principal; 2022-03-20)
PROC: 0JPT3XZ Removal of Tunneled Vascular Access Device from Trunk Subcutaneous Tissue and Fascia, Percutaneous Approach (ICD-10-PCS; 2022-03-21)
PROC: 02PYX3Z Removal of Infusion Device from Great Vessel, External Approach (ICD-10-PCS; 2022-03-21)
PROC: 5A1D70Z Performance of Urinary Filtration, Intermittent, Less than 6 Hours Per Day (ICD-10-PCS; 2022-03-22)
PROC: 02HV33Z Insertion of Infusion Device into Superior Vena Cava, Percutaneous Approach (ICD-10-PCS; 2022-03-22)
PROC: B548ZZA Ultrasonography of Superior Vena Cava, Guidance (ICD-10-PCS; 2022-03-22)
PROC: 5A1D70Z Performance of Urinary Filtration, Intermittent, Less than 6 Hours Per Day (ICD-10-PCS; 2022-03-25)
PROC: 5A1D70Z Performance of Urinary Filtration, Intermittent, Less than 6 Hours Per Day (ICD-10-PCS; 2022-03-27)
PROC: 02PYX3Z Removal of Infusion Device from Great Vessel, External Approach (ICD-10-PCS; 2022-03-28)
PROC: 0JH63XZ Insertion of Tunneled Vascular Access Device into Chest Subcutaneous Tissue and Fascia, Percutaneous Approach (ICD-10-PCS; 2022-03-28)
PROC: 02HV33Z Insertion of Infusion Device into Superior Vena Cava, Percutaneous Approach (ICD-10-PCS; 2022-03-28)
PROC: B518ZZA Fluoroscopy of Superior Vena Cava, Guidance (ICD-10-PCS; 2022-03-28)
PROC: 5A1D70Z Performance of Urinary Filtration, Intermittent, Less than 6 Hours Per Day (ICD-10-PCS; 2022-03-29)
DX: T80.211A Bloodstream infection due to central venous catheter, initial encounter (principal); A41.01 Sepsis due to Methicillin susceptible Staphylococcus aureus; U07.1 COVID-19; E85.4 Organ-limited amyloidosis; N18.6 End stage renal disease; I42.5 Other restrictive cardiomyopathy; I11.0 Hypertensive heart disease with heart failure; I50.22 Chronic systolic (congestive) heart failure; K21.9 Gastro-esophageal reflux disease without esophagitis; I05.9 Rheumatic mitral valve disease, unspecified; J45.909 Unspecified asthma, uncomplicated; D64.9 Anemia, unspecified; R09.02 Hypoxemia; G25.81 Restless legs syndrome; Y84.8 Other medical procedures as the cause of abnormal reaction of the patient, or of later complication, without mention of misadventure at the time of the procedure; Y92.89 Other specified places as the place of occurrence of the external cause; Z82.49 Family history of ischemic heart disease and other diseases of the circulatory system; Z99.2 Dependence on renal dialysis; Z85.9 Personal history of malignant neoplasm, unspecified
CPT/HCPCS: 36415; 36556; 36558; 36589; 71045; 76937; 77001; 80048; 80053; 80170; 80202; 82962; 83735; 84100; 85025; 85651; 86705; 86709; 86803; 87077; 87186; 87340; 87426; 93306; 99285; C1750; C1752; C1769; C9803; J0690; J0885; J1100; J1580; J2405; J2543; J3010; J3370; J3490; J7030; J7060

== ENCOUNTER 2022-07-15 09:14 | Inpatient (IN) | payer MEDICAID ==
[~2022-07-15] VITALS: Ht 152.4 cm; Wt 42.6 kg
[~2022-07-15 09:14] MED LIST changes: -ACYC200C31 MT
[2022-07-15 09:47] LABS: BASOPHILS % 1.2 % (0.0-2.0); EOSINOPHILS % 4.4 % (0.0-5.0); HEMOGLOBIN. 13.6 g/dL (12.0-16.0); LYMPHOCYTES % 13.5 % (20.0-50.0); MEAN CORPUSCULAR HEMOGLOBIN 30.4 pg (28.0-32.0); MEAN CORPUSCULAR VOLUME 93.5 fL (81.0-99.0); MEAN PLATELET VOLUME 9.3 fl (7.4-10.4); MONOCYTES % 4.4 % (2.0-8.0); NEUTROPHILS % 76.5 % (40.0-76.0); PLATELET 239 x1000/uL (130-400); RED BLOOD CELL COUNT 4.49 mill/uL (4.2-5.4); RED CELL DISTRIBUTION WIDTH 17.3 % (11.6-14.6)
[2022-07-15 09:53] LABS: CHLORIDE 101 mEq/L (98-107)
[2022-07-15] MEDS ORDERED: ALBUTEROL (0.083%) 2.5MG/3ML NEB HHN ONE (10:00)
[2022-07-15] MEDS ORDERED: DEXTROSE 50% WATER 50ML SYRINGE IV ONE (10:00)
[2022-07-15] MEDS ORDERED: SODIUM BICARBONATE 8.4% 1 MEQ/ML 50ML SYR IV ONE (10:00)
[2022-07-15] MEDS ORDERED: INSULIN REGULAR (HUMULIN R) 300UNITS/3ML VIAL IV ONE (10:00)
[2022-07-15] MEDS ORDERED: CALCIUM CHLORIDE 1GM/10ML SYR IV ONE (10:00)
[2022-07-15] MEDS ORDERED: FUROSEMIDE 100MG/10ML VIAL IVP NR (10:45)
[2022-07-15 11:19] LABS: HEPATITIS B SURFACE ANTIGEN NEGATIVE
[2022-07-15 11:29] LABS: BG BASE EXCESS -3.2 mmol/L (-2.0-2.0); BG CARBOXYHEMOGLOBIN 0.6 % (0.5-1.5); BG DEOXYHEMOGLOBIN 4.6 % (0.0-5.0); BG FRACTION INSPIRED OXYGEN 40; BG METHEMOGLOBIN 0.3 % (0.0-1.5); BG OXYGEN SATURATION 95.4 % (92.0-98.5); BG OXYHEMOGLOBIN 94.5 % (94.0-97.0); BG PCO2 45.5 mmHg (35.0-45.0); BG PH 7.322 (7.350-7.450); BG PO2 88.8 mmHg (75.0-100.0); BG SAMPLE SITE RIGHT BRACHIAL; BG TOTAL HEMOGLOBIN 13.9 g/dL (12.0-18.0); BG TOTAL RESPIRATORY RATE 27 b/min; BG VENT MODE MASK - BIPAP
[2022-07-15] MEDS ORDERED: IOHEXOL-350 100 ML BOTTLE ONE (12:19)
[2022-07-15 13:00] VITALS: BP_SYST 172; BP_DIAS 100; BP_DIAS 88
[2022-07-15] MEDS ORDERED: TOPUD PO (15:26)
[2022-07-15] MEDS ORDERED: DIPHENHYDRAMINE 25MG CAPSULE PO PRN (15:30)
[2022-07-15] MEDS ORDERED: LORAZEPAM 0.5MG TABLET PO PRN (15:30)
[2022-07-15 16:00] VITALS: BP 152/86
[2022-07-15 20:00] VITALS: BP 147/87
[2022-07-15 23:40] LABS: PARTIAL THROMBOPLASTIN TIME 29.7 sec (23.4-31.0); PROTHROMBIN TIME 10.6 sec (9.6-11.0)
[2022-07-16] VITALS (7 sets, daily range): BP systolic 129–169; BP diastolic 64–96
[2022-07-16] MEDS ORDERED: DIPHENHYDRAMINE 50MG/ML VIAL IV PRN (00:30)
[2022-07-16] MEDS ORDERED: CLONIDINE 0.1MG TABLET PO PRN (00:30)
[2022-07-16] MEDS ORDERED: IPRATROPIUM/ALBUTEROL 0.5-3(2.5)MG/3ML NEB HHN PRN (00:30)
[2022-07-16] MEDS ORDERED: ACETAMINOPHEN 325MG TABLET PO PRN (00:30)
[2022-07-16] MEDS ORDERED: ONDANSETRON HCL 4MG/2ML INJ IV PRN (00:30)
[2022-07-16] MEDS ORDERED: ZOLPIDEM TARTRATE 5MG TABLET PO PRN (00:30)
[2022-07-16] MEDS: SODIUM CHLORIDE 0.9% INJ 3ML FLUSH IVF SCH ×3 (05:56→21:04)
[2022-07-16 07:24] LABS: BASOPHILS % 0.8 % (0.0-2.0); EOSINOPHILS % 3.6 % (0.0-5.0); HEMATOCRIT. 35.5 % (36.0-48.0); HEMOGLOBIN. 11.6 g/dL (12.0-16.0); LYMPHOCYTES % 14.1 % (20.0-50.0); MEAN CORPUSCULAR HEMOGLOBIN 29.9 pg (28.0-32.0); MEAN CORPUSCULAR VOLUME 91.9 fL (81.0-99.0); MEAN PLATELET VOLUME 9.7 fl (7.4-10.4); MONOCYTES % 6.2 % (2.0-8.0); NEUTROPHILS % 75.3 % (40.0-76.0); PLATELET 180 x1000/uL (130-400); RED BLOOD CELL COUNT 3.87 mill/uL (4.2-5.4); RED CELL DISTRIBUTION WIDTH 17.1 % (11.6-14.6)
[2022-07-16 08:46] LABS: PHOSPHORUS 4.8 mg/dL (2.5-4.9)
[2022-07-16] MEDS ORDERED: SODIUM POLYSTYRENE SULFONATE 15 G/60 ML BOT PO NR (09:45)
[2022-07-16] MEDS: ACETAMINOPHEN 325MG TABLET PO PRN (10:41)
[2022-07-16] MEDS: ROPINIROLE HCL 1MG TABLET PO SCH (21:04)
[2022-07-16] MEDS: GABAPENTIN 100MG CAPSULE PO SCH (21:04)
[2022-07-17] VITALS (8 sets, daily range): BP systolic 120–156; BP diastolic 70–99
[2022-07-17] MEDS: SODIUM CHLORIDE 0.9% INJ 3ML FLUSH IVF SCH ×2 (05:21→14:00)
[2022-07-17] MEDS: GABAPENTIN 100MG CAPSULE PO SCH ×2 (05:21→14:00)
[2022-07-17] MEDS: ROPINIROLE HCL 1MG TABLET PO SCH ×2 (05:21→14:00)
[2022-07-17 07:12] LABS: PHOSPHORUS 4.9 mg/dL (2.5-4.9)
[2022-07-17 07:20] LABS: BASOPHILS % 1.2 % (0.0-2.0); HEMATOCRIT. 39.4 % (36.0-48.0); HEMOGLOBIN. 12.2 g/dL (12.0-16.0); LYMPHOCYTES % 20.1 % (20.0-50.0); MEAN CORPUSCULAR HEMOGLOBIN 30.3 pg (28.0-32.0); MEAN CORPUSCULAR VOLUME 97.6 fL (81.0-99.0); MEAN PLATELET VOLUME 8.8 fl (7.4-10.4); MONOCYTES % 7.9 % (2.0-8.0); NEUTROPHILS % 63.8 % (40.0-76.0); PLATELET 161 x1000/uL (130-400); RED BLOOD CELL COUNT 4.04 mill/uL (4.2-5.4); RED CELL DISTRIBUTION WIDTH 17.5 % (11.6-14.6)
[2022-07-17] MEDS ORDERED: SODIUM BICARBONATE 4% (2.4MEQ) 5ML VIAL IV ONE (08:10)
[2022-07-17] MEDS: ACETAMINOPHEN 325MG TABLET PO PRN (09:40)
== END 2022-07-17 18:15 | disposition home or self-care (01) | DRG 425 ==
LOC: ER 09:14 → EDBEDREQTM 10:06 → EDBEDREQ 11:24 → EDBEDREQTM 11:24 → 7WST 11:24 → EDBEDREQ 11:25 → EDBEDREQTM 11:25 → ENRESERV 11:37
PROVIDERS: ADMIT Internal Medicine; ATTEND Internal Medicine
PROC: 5A1D70Z Performance of Urinary Filtration, Intermittent, Less than 6 Hours Per Day (ICD-10-PCS; principal; 2022-07-15)
PROC: 5A09357 Assistance with Respiratory Ventilation, Less than 24 Consecutive Hours, Continuous Positive Airway Pressure (ICD-10-PCS; 2022-07-15)
PROC: 5A1D70Z Performance of Urinary Filtration, Intermittent, Less than 6 Hours Per Day (ICD-10-PCS; 2022-07-16)
PROC: 0W993ZZ Drainage of Right Pleural Cavity, Percutaneous Approach (ICD-10-PCS; 2022-07-16)
PROC: 5A1D70Z Performance of Urinary Filtration, Intermittent, Less than 6 Hours Per Day (ICD-10-PCS; 2022-07-17)
PROC: 0W9B3ZZ Drainage of Left Pleural Cavity, Percutaneous Approach (ICD-10-PCS; 2022-07-17)
DX: E87.5 Hyperkalemia (principal); J96.01 Acute respiratory failure with hypoxia; I50.23 Acute on chronic systolic (congestive) heart failure; I42.5 Other restrictive cardiomyopathy; N18.6 End stage renal disease; E85.4 Organ-limited amyloidosis; J91.8 Pleural effusion in other conditions classified elsewhere; Z20.822 Contact with and (suspected) exposure to COVID-19; G62.9 Polyneuropathy, unspecified; I11.0 Hypertensive heart disease with heart failure; G25.81 Restless legs syndrome; I16.0 Hypertensive urgency; J45.909 Unspecified asthma, uncomplicated; Z99.2 Dependence on renal dialysis; Z82.49 Family history of ischemic heart disease and other diseases of the circulatory system; Z85.830 Personal history of malignant neoplasm of bone; Z79.899 Other long term (current) drug therapy
CPT/HCPCS: 32555; 36415; 36600; 71045; 71275; 80048; 80053; 82375; 82805; 82962; 83735; 83880; 84100; 84484; 85025; 86705; 86709; 86803; 87340; 87426; 93005; 99291; J1815; J1940; J2405; J3490; Q9967

== ENCOUNTER 2022-08-09 13:36 | Inpatient (IN) | payer MEDICAID ==
[~2022-08-09] VITALS: Ht 162.6 cm; Wt 42.0 kg
[~2022-08-09 13:36] MED LIST changes: +TOPUD PO
[2022-08-09] MEDS ORDERED: ALBUTEROL (0.083%) 2.5MG/3ML NEB HHN NR (21:55)
[2022-08-09] MEDS ORDERED: ACETAMINOPHEN 325MG TABLET PO NR (22:00)
[2022-08-09 22:32] LABS: BASOPHILS % 0.8 % (0.0-2.0); EOSINOPHILS % 0.7 % (0.0-5.0); HEMOGLOBIN. 11.9 g/dL (12.0-16.0); LYMPHOCYTES % 9.5 % (20.0-50.0); MEAN CORPUSCULAR HEMOGLOBIN 29.9 pg (28.0-32.0); MEAN CORPUSCULAR VOLUME 90.7 fL (81.0-99.0); MEAN PLATELET VOLUME 8.8 fl (7.4-10.4); MONOCYTES % 5.9 % (2.0-8.0); NEUTROPHILS % 83.1 % (40.0-76.0); PLATELET 274 x1000/uL (130-400); RED BLOOD CELL COUNT 3.97 mill/uL (4.2-5.4)
[2022-08-09 22:41] LABS: CHLORIDE 98 mEq/L (98-107)
[2022-08-09 23:05] LABS: ETHANOL BLOOD < 10 mg/dL
[2022-08-09 23:06] LABS: *AMPHETAMINES SCREEN URINE NEGATIVE (NEGATIVE); *BARBITURATES SCREEN URINE NEGATIVE (NEGATIVE); *BENZODIAZEPINES SCREEN URINE NEGATIVE (NEGATIVE); *COCAINE SCREEN URINE NEGATIVE (NEGATIVE); CANNABINOID URINE SCREEN NEGATIVE (NEGATIVE); METHADONE URINE SCREEN NEGATIVE (NEGATIVE); OPIATES URINE SCREEN NEGATIVE (NEGATIVE); PHENCYCLIDINE URINE SCREEN NEGATIVE (NEGATIVE)
[2022-08-09] MEDS ORDERED: ASPIRIN 325MG EC TABLET PO NR (23:45)
[2022-08-09] MEDS ORDERED: ENOXAPARIN 80MG/0.8ML SYR SUBCUT NR (23:45)
[2022-08-09] MEDS ORDERED: NITROGLYCERIN OINT 1GM/INCH UDPKT TD NR (23:45)
[2022-08-09] MEDS ORDERED: FUROSEMIDE 40MG/4ML VIAL IVP ONE (23:45)
[2022-08-10 09:00] VITALS: BP 147/85
[2022-08-10] MEDS ORDERED: ONDANSETRON HCL 4MG/2ML INJ IV PRN (09:15)
[2022-08-10] MEDS ORDERED: IPRATROPIUM/ALBUTEROL 0.5-3(2.5)MG/3ML NEB HHN PRN (09:15)
[2022-08-10] MEDS ORDERED: ACETAMINOPHEN 650MG/20.3ML UDC PO PRN (14:30)
[2022-08-10] MEDS: BENZONATATE 100MG CAPSULE PO SCH ×2 (14:40→21:56)
[2022-08-10] MEDS: GUAIFENESIN-DM 200MG-20MG/10ML UDC PO PRN ×2 (14:40→20:44)
[2022-08-10] MEDS ORDERED: IOHEXOL-350 100 ML BOTTLE ONE (15:01)
[2022-08-10 16:00] VITALS: BP 155/81
[2022-08-10 20:00] VITALS: BP 137/80
[2022-08-10] MEDS: IPRATROPIUM/ALBUTEROL 0.5-3(2.5)MG/3ML NEB HHN SCH (21:27)
[2022-08-10 23:15] VITALS: BP 150/79
[2022-08-10 23:30] VITALS: BP 150/79
[2022-08-10 23:45] VITALS: BP 172/95
[2022-08-11] VITALS (12 sets, daily range): BP systolic 137–172; BP diastolic 77–107
[2022-08-11] MEDS: GUAIFENESIN-DM 200MG-20MG/10ML UDC PO PRN ×3 (01:37→20:21)
[2022-08-11] MEDS: BENZONATATE 100MG CAPSULE PO SCH ×3 (05:10→20:21)
[2022-08-11 08:02] LABS: BASOPHILS % 0.9 % (0.0-2.0); EOSINOPHILS % 2.6 % (0.0-5.0); HEMATOCRIT. 32.6 % (36.0-48.0); HEMOGLOBIN. 10.8 g/dL (12.0-16.0); LYMPHOCYTES % 11.7 % (20.0-50.0); MEAN CORPUSCULAR VOLUME 90.5 fL (81.0-99.0); MEAN PLATELET VOLUME 9.3 fl (7.4-10.4); MONOCYTES % 6.1 % (2.0-8.0); NEUTROPHILS % 78.7 % (40.0-76.0); PLATELET 245 x1000/uL (130-400); RED CELL DISTRIBUTION WIDTH 16.7 % (11.6-14.6)
[2022-08-11 08:28] LABS: PHOSPHORUS 3.5 mg/dL (2.5-4.9)
[2022-08-11] MEDS ORDERED: ONDANSETRON 4MG ODT PO PRN (09:30)
[2022-08-11] MEDS: AMLODIPINE 2.5MG TABLET PO SCH ×2 (09:30→11:42)
[2022-08-11] MEDS: IPRATROPIUM/ALBUTEROL 0.5-3(2.5)MG/3ML NEB HHN SCH (09:35)
[2022-08-11] MEDS: ROPINIROLE HCL 1MG TABLET PO SCH (10:06)
[2022-08-11] MEDS: ACYCLOVIR 200MG CAPSULE PO SCH ×2 (10:06→16:26)
[2022-08-11] MEDS: HYDROXYZINE 25MG TABLET PO SCH (16:26)
[2022-08-11] MEDS: SUCRALFATE 1G TABLET PO SCH (16:26)
[2022-08-11] MEDS ORDERED: CEFTRIAXONE 1,000 MG in DEXTROSE 5% WATER 50 ML IV SCH (18:00)
[2022-08-11] MEDS ORDERED: GABAPENTIN 300MG CAPSULE PO SCH (21:00)
[2022-08-11] MEDS ORDERED: CEFEPIME 2,000 MG in DEXT 5% WATER 100 ML IV SCH (23:00)
[2022-08-12] VITALS (12 sets, daily range): BP systolic 127–157; BP diastolic 67–99
[2022-08-12] MEDS: IPRATROPIUM/ALBUTEROL 0.5-3(2.5)MG/3ML NEB HHN SCH ×3 (00:32→16:47)
[2022-08-12 06:33] LABS: EOSINOPHILS % 6.2 % (0.0-5.0); HEMATOCRIT. 31.1 % (36.0-48.0); HEMOGLOBIN. 10.4 g/dL (12.0-16.0); LYMPHOCYTES % 24.8 % (20.0-50.0); MEAN CORPUSCULAR HEMOGLOBIN 30.2 pg (28.0-32.0); MEAN CORPUSCULAR VOLUME 90.3 fL (81.0-99.0); MEAN PLATELET VOLUME 8.9 fl (7.4-10.4); MONOCYTES % 8.8 % (2.0-8.0); NEUTROPHILS % 59.2 % (40.0-76.0); PLATELET 232 x1000/uL (130-400); RED BLOOD CELL COUNT 3.44 mill/uL (4.2-5.4)
[2022-08-12] MEDS: BENZONATATE 100MG CAPSULE PO SCH ×2 (06:37→13:34)
[2022-08-12 07:16] LABS: PHOSPHORUS 4.5 mg/dL (2.5-4.9)
[2022-08-12] MEDS: GUAIFENESIN-DM 200MG-20MG/10ML UDC PO PRN ×2 (08:42→16:39)
[2022-08-12] MEDS: SUCRALFATE 1G TABLET PO SCH ×2 (08:43→16:36)
[2022-08-12] MEDS: ROPINIROLE HCL 1MG TABLET PO SCH (08:43)
[2022-08-12] MEDS: AMLODIPINE 2.5MG TABLET PO SCH (08:43)
[2022-08-12] MEDS: ACYCLOVIR 200MG CAPSULE PO SCH ×2 (08:43→16:36)
[2022-08-12] MEDS: HYDROXYZINE 25MG TABLET PO SCH ×2 (08:43→16:37)
[2022-08-12] MEDS ORDERED: AZITHROMYCIN 500 MG TABLET PO SCH (09:00)
[2022-08-12] MEDS ORDERED: LEVO250T74 MT (11:46)
[2022-08-12] MEDS ORDERED: BENZ100C86 MT (11:46)
[2022-08-12] MEDS ORDERED: TUSSL MT (11:46)
== END 2022-08-12 17:32 | disposition home or self-care (01) | DRG 133 ==
LOC: ER 13:57 → MICUSO 23:59 → EDBEDREQ 08-10 → 3WST 08-10 08:50
PROVIDERS: ADMIT Internal Medicine; ATTEND Internal Medicine
PROC: 5A1D70Z Performance of Urinary Filtration, Intermittent, Less than 6 Hours Per Day (ICD-10-PCS; principal; 2022-08-10)
PROC: 5A1D70Z Performance of Urinary Filtration, Intermittent, Less than 6 Hours Per Day (ICD-10-PCS; 2022-08-12)
DX: J96.00 Acute respiratory failure, unspecified whether with hypoxia or hypercapnia (principal); I13.2 Hypertensive heart and chronic kidney disease with heart failure and with stage 5 chronic kidney disease, or end stage renal disease; E85.9 Amyloidosis, unspecified; I42.5 Other restrictive cardiomyopathy; J18.9 Pneumonia, unspecified organism; D63.1 Anemia in chronic kidney disease; N18.6 End stage renal disease; J06.9 Acute upper respiratory infection, unspecified; J90 Pleural effusion, not elsewhere classified; I50.9 Heart failure, unspecified; J45.909 Unspecified asthma, uncomplicated; L29.9 Pruritus, unspecified; I95.1 Orthostatic hypotension; N25.81 Secondary hyperparathyroidism of renal origin; Z20.822 Contact with and (suspected) exposure to COVID-19; Z99.2 Dependence on renal dialysis; Z91.15 Patient's noncompliance with renal dialysis; Z86.16 Personal history of COVID-19; Z87.440 Personal history of urinary (tract) infections; Z82.49 Family history of ischemic heart disease and other diseases of the circulatory system
CPT/HCPCS: 36415; 71045; 71275; 80048; 80053; 80305; 80320; 83880; 84100; 84145; 84484; 85025; 87426; 90935; 93005; 94640; 99291; J0692; J0696; J1650; J1940; J7060; Q9967; G0480

== ENCOUNTER 2023-04-18 15:27 | Emergency (ER) | payer MEDICAID ==
[~2023-04-18] VITALS: Ht 152.4 cm; Wt 42.0 kg
[~2023-04-18 15:27] MED LIST changes: -B25 MT; +BENZ100C86 MT; +DIPH-1207 MT; +LEVO250T74 MT; +TUSSL MT
[2023-04-18 15:53] VITALS: BP 125/75; PULSE 77; RESP 16; TEMP 99; O2SAT 99
[2023-04-18 17:54] LABS: HEMATOCRIT. 31.2 % (36.0-48.0); HEMOGLOBIN. 10.2 g/dL (12.0-16.0); LYMPHOCYTES % 11.9 % (20.0-50.0); MEAN CORPUSCULAR HEMOGLOBIN 27.8 pg (28.0-32.0); MEAN CORPUSCULAR VOLUME 84.8 fL (81.0-99.0); MEAN PLATELET VOLUME 8.4 fl (7.4-10.4); MONOCYTES % 9.4 % (2.0-8.0); NEUTROPHILS % 73.7 % (40.0-76.0); PLATELET 304 x1000/uL (130-400); RED BLOOD CELL COUNT 3.68 mill/uL (4.2-5.4); RED CELL DISTRIBUTION WIDTH 22.5 % (11.6-14.6)
[2023-04-18] MEDS ORDERED: TC1C15 TP (18:00)
[2023-04-18] MEDS ORDERED: DIPH103G TP (18:00)
[2023-04-18 18:05] LABS: CHLORIDE 96 mEq/L (98-107)
[2023-04-18 18:34] LABS: PLATELET ESTIMATE NORMAL
== END 2023-04-18 19:25 | disposition home or self-care (01) ==
LOC: ER 15:31
DX: L30.9 Dermatitis, unspecified (principal); D69.2 Other nonthrombocytopenic purpura; E78.00 Pure hypercholesterolemia, unspecified; I10 Essential (primary) hypertension; Z99.2 Dependence on renal dialysis; Z85.9 Personal history of malignant neoplasm, unspecified; Z79.899 Other long term (current) drug therapy
CPT/HCPCS: 36415; 80053; 85025; 99283

== ENCOUNTER 2023-05-16 16:14 | Inpatient (IN) | payer MEDICAID ==
[~2023-05-16] VITALS: Ht 160 cm; Wt 42.2 kg
[~2023-05-16 16:14] MED LIST changes: +DIPH103G TP; +TC1C15 TP
[2023-05-16 17:06] LABS: HEMATOCRIT. 30.9 % (36.0-48.0); HEMOGLOBIN. 10.2 g/dL (12.0-16.0); MEAN CORPUSCULAR HEMOGLOBIN 28.3 pg (28.0-32.0); MEAN CORPUSCULAR VOLUME 85.7 fL (81.0-99.0); MEAN PLATELET VOLUME 8.4 fl (7.4-10.4); PLATELET 283 x1000/uL (130-400); RED BLOOD CELL COUNT 3.61 mill/uL (4.2-5.4); WHITE BLOOD COUNT 7.6 x1000/uL (4.5-11.0)
[2023-05-16 17:13] LABS: DIFFERENTIAL COMMENT 1
[2023-05-16 17:24] LABS: CHLORIDE 97 mEq/L (98-107); INDEX HEMOLYSI 1 (1-3); INDEX ICTERIC 1 (1-4); INDEX LIPEMIC 1 (1-3); POTASSIUM 4.1 mEq/L (3.5-5.1); SODIUM 134 mEq/L (136-145)
[2023-05-16 17:30] LABS: ALANINE AMINOTRANSFERASE 20 IU/L (13-61); ALBUMIN 2.8 g/dL (3.4-5.0); ASPARTATE AMINOTRANSFERASE 16 IU/L (15-37); BILIRUBIN TOTAL 0.7 mg/dL (0.1-1.0); CALCIUM 8.8 mg/dL (8.5-10.1); CARBON DIOXIDE 32 mEq/L (21-32); CREATININE 3.3 mg/dL (0.6-1.3); GLUCOSE 112 mg/dL (70-105); PROTEIN TOTAL 7.4 g/dL (6.0-8.3); UREA NITROGEN BLOOD 12 mg/dL (7-21)
[2023-05-16] MEDS ORDERED: CEFTRIAXONE 1GM PREMIX 50 ML IV ONE (19:30)
[2023-05-16 23:24] LABS: ANISOCYTOSIS 2+; PLATELET ESTIMATE NORMAL
[2023-05-16 23:45] LABS: CLARITY URINE CLOUDY (CLEAR); COLOR URINE YELLOW (YELLOW); GLUCOSE URINE TRACE (NEGATIVE); KETONES URINE NEGATIVE (NEGATIVE); LEUKOCYTE ESTERASE URINE 1+ (NEGATIVE); NITRITE URINE NEGATIVE (NEGATIVE); OCCULT BLOOD URINE TRACE (NEGATIVE); PH URINE 8.5 (4.5-8.0); PROTEIN URINE 3+ (NEGATIVE); SPECIFIC GRAVITY URINE 1.006 (1.005-1.030); UROBILINOGEN URINE 0.2 E.U./dL (0.2-1.0)
[2023-05-17] MEDS ORDERED: DEXTROSE 50% WATER 50ML SYRINGE IV PRN (03:30)
[2023-05-17] MEDS ORDERED: ONDANSETRON HCL 4MG/2ML INJ IV PRN (03:30)
[2023-05-17] MEDS ORDERED: ACETAMINOPHEN 325MG TABLET PO PRN ×2 (03:30)
[2023-05-17] MEDS ORDERED: DIPHENHYDRAMINE 50MG/ML VIAL IV PRN (03:30)
[2023-05-17] MEDS ORDERED: DOCUSATE SODIUM 100MG CAPSULE PO PRN (03:30)
[2023-05-17] MEDS ORDERED: CLONIDINE 0.1MG TABLET PO PRN (03:30)
[2023-05-17] MEDS ORDERED: IPRATROPIUM/ALBUTEROL 0.5-3(2.5)MG/3ML NEB HHN PRN (03:30)
[2023-05-17] MEDS ORDERED: MAGNESIUM/ALUMINUM HYDROXIDE/SIMETHICONE 30ML UDC PO PRN (03:30)
[2023-05-17] MEDS ORDERED: GUAIFENESIN 200MG/10ML SUGAR FREE UDC PO PRN (03:30)
[2023-05-17 04:00] VITALS: BP 145/86; PULSE 78; RESP 18; TEMP 96.6
[2023-05-17] MEDS: BLOOD SUGAR DIAGNOSTIC STRIP TEST SCH ×4 (06:36→20:25)
[2023-05-17 08:00] VITALS: BP 128/68; PULSE 74; RESP 18; TEMP 97.5
[2023-05-17] MEDS: ENOXAPARIN 30MG/0.3ML SYR SUBCUT SCH (08:44)
[2023-05-17 08:58] LABS: SQUAMOUS EPITHELIAL CELL URINE FEW /lpf (RARE/1+)
[2023-05-17 09:03] LABS: BACTERIA URINE 1+; RBC URINE 0-2 /hpf (0-2)
[2023-05-17 11:25] LABS: D-DIMER 2.16 mg/L FEU (<0.50); INR 1.1; PROTHROMBIN TIME 11.8 sec (9.6-11.0)
[2023-05-17 11:28] LABS: INDEX HEMOLYSI 1 (1-3)
[2023-05-17 11:30] LABS: INDEX HEMOLYSI 1 (1-3); INDEX ICTERIC 1 (1-4); INDEX LIPEMIC 1 (1-3)
[2023-05-17 11:37] LABS: CREATINE KINASE 60 IU/L (26-192); CREATINE KINASE MB FRACTION 1.3 ng/mL (0.5-3.6); IRON 43 ug/dL (50-175); PHOSPHORUS 3.9 mg/dL (2.5-4.9); TOTAL IRON BINDING CAPACITY 222 ug/dL (250-450); TROPONIN I HIGH SENSITIVITY 42 ng/L (<54)
[2023-05-17 12:00] VITALS: BP 139/71; PULSE 80; RESP 18; TEMP 97.9
[2023-05-17 13:34] LABS: FOLIC ACID (FOLATE) SERUM > 20.00 ng/mL (>5.38); VITAMIN B12 SERUM > 2000.0 pg/mL (211-911)
[2023-05-17 16:00] VITALS: BP 144/86; PULSE 82; RESP 16; TEMP 99.3
[2023-05-17 16:31] LABS: HEPATITIS B SURFACE ANTIGEN NEGATIVE
[2023-05-17 16:44] LABS: INDEX HEMOLYSI 1 (1-3)
[2023-05-17 16:55] LABS: CREATINE KINASE 66 IU/L (26-192); CREATINE KINASE MB FRACTION < 1.0 ng/mL (0.5-3.6); TROPONIN I HIGH SENSITIVITY 38 ng/L (<54)
[2023-05-17 16:59] LABS: HEPATITIS C VIR.AB 0.13 INDEXVAL (0.00-0.80)
[2023-05-17 17:01] LABS: HEPATITIS A AB IGM NEGATIVE (NEGATIVE)
[2023-05-17] MEDS ORDERED: VANCOMYCIN 1G PREMIX 200 ML IV NR (18:00)
[2023-05-17 18:43] LABS: *AMPHETAMINES SCREEN URINE NEGATIVE (NEGATIVE); *BARBITURATES SCREEN URINE NEGATIVE (NEGATIVE); *BENZODIAZEPINES SCREEN URINE NEGATIVE (NEGATIVE); *COCAINE SCREEN URINE NEGATIVE (NEGATIVE); CANNABINOID URINE SCREEN NEGATIVE (NEGATIVE); ECSTASY MDMA SCREEN URINE NEGATIVE (NEGATIVE); METHADONE URINE SCREEN NEGATIVE (NEGATIVE); OPIATES URINE SCREEN NEGATIVE (NEGATIVE); PHENCYCLIDINE URINE SCREEN NEGATIVE (NEGATIVE)
[2023-05-17 20:00] VITALS: BP 134/72; PULSE 81; RESP 18; TEMP 96.9
[2023-05-17] MEDS ORDERED: FAMOTIDINE 20MG TABLET PO SCH (21:00)
[2023-05-18] VITALS: BP 140/88; PULSE 79; RESP 18; TEMP 96.9
[2023-05-18 04:00] VITALS: BP 149/72; PULSE 78; RESP 18; TEMP 96.9
[2023-05-18] MEDS: BLOOD SUGAR DIAGNOSTIC STRIP TEST SCH (06:09)
[2023-05-18 08:00] VITALS: BP 156/88; PULSE 85; RESP 18; TEMP 98.1
[2023-05-18] MEDS ORDERED: AMLODIPINE 5MG TABLET PO SCH (08:00)
[2023-05-18 08:06] LABS: BASOPHILS % 1.4 % (0.0-2.0); EOSINOPHILS % 3.3 % (0.0-5.0); HEMATOCRIT. 31.7 % (36.0-48.0); HEMOGLOBIN. 10.4 g/dL (12.0-16.0); LYMPHOCYTES % 11.8 % (20.0-50.0); MEAN CORPUSCULAR HEMOGLOBIN 28.7 pg (28.0-32.0); MEAN CORPUSCULAR HGB CONC 32.9 g/dL (31.0-37.0); MONOCYTES % 7.4 % (2.0-8.0); NEUTROPHILS % 76.1 % (40.0-76.0); PLATELET 282 x1000/uL (130-400); RED BLOOD CELL COUNT 3.64 mill/uL (4.2-5.4); RED CELL DISTRIBUTION WIDTH 19.7 % (11.6-14.6); WHITE BLOOD COUNT 6.2 x1000/uL (4.5-11.0)
[2023-05-18] MEDS: ENOXAPARIN 30MG/0.3ML SYR SUBCUT SCH (08:58)
[2023-05-18 10:09] VITALS: BP 141/65; PULSE 71; TEMP 98.2; O2SAT 99
[2023-05-18] MEDS ORDERED: CEPH250T PO (10:17)
[2023-05-18] MEDS ORDERED: DOXY100T28 PO (10:17)
[2023-05-18 11:02] LABS: CHLORIDE 99 mEq/L (98-107); INDEX HEMOLYSI 1 (1-3); INDEX ICTERIC 1 (1-4); INDEX LIPEMIC 1 (1-3); POTASSIUM 4.8 mEq/L (3.5-5.1); SODIUM 133 mEq/L (136-145)
[2023-05-18 11:22] LABS: ALANINE AMINOTRANSFERASE 17 IU/L (13-61); ALBUMIN 2.7 g/dL (3.4-5.0); ASPARTATE AMINOTRANSFERASE 17 IU/L (15-37); BILIRUBIN TOTAL 0.6 mg/dL (0.1-1.0); CALCIUM 9.8 mg/dL (8.5-10.1); CARBON DIOXIDE 24 mEq/L (21-32); CHOLESTEROL 153 mg/dL (<200); GLUCOSE 64 mg/dL (70-105); HDL CHOLESTEROL 53 mg/dL (40-59); LDL CHOLESTEROL 92 mg/dL (5-100); PROTEIN TOTAL 7.2 g/dL (6.0-8.3); TRIGLYCERIDE 105 mg/dL (0-150); UREA NITROGEN BLOOD 34 mg/dL (7-21)
[2023-05-18 11:40] LABS: CREATININE 7.2 mg/dL (0.6-1.3)
[2023-05-18 14:08] LABS: THYROID STIMULATING HORMONE 0.56 uIU/mL (0.36-3.74)
[2023-05-18 14:23] LABS: T4 FREE 1.15 ng/dL (0.76-1.46)
[2023-05-19 09:06] LABS: COMPLEMENT C3 106 mg/dL (82-167); COMPLEMENT C4 22 mg/dL (12-38)
[2023-05-19 13:07] LABS: ANTI-NUCLEAR ANTIBODIES DIRECT Negative (Negative)
[2023-05-19 14:10] LABS: HEPATITIS B CORE AB IGM NEGATIVE
[2023-05-19] MEDS ORDERED: VANCOMYCIN 750MG PREMIX 150 ML IV SCH (18:00)
== END 2023-05-18 11:15 | disposition home or self-care (01) | DRG 383 ==
LOC: ER 16:14 → EDBEDREQ 05-17 00:34 → EDBEDREQTM 05-17 00:34 → 8WST 05-17 04:04
PROVIDERS: ADMIT Internal Medicine; ATTEND Internal Medicine
DX: L03.115 Cellulitis of right lower limb (principal); C41.4 Malignant neoplasm of pelvic bones, sacrum and coccyx; E85.9 Amyloidosis, unspecified; I12.0 Hypertensive chronic kidney disease with stage 5 chronic kidney disease or end stage renal disease; A46 Erysipelas; N18.6 End stage renal disease; E78.00 Pure hypercholesterolemia, unspecified; D64.9 Anemia, unspecified; R73.03 Prediabetes; Z79.899 Other long term (current) drug therapy; Z99.2 Dependence on renal dialysis
CPT/HCPCS: 36415; 73590; 80048; 80053; 80061; 80305; 81003; 82550; 82553; 82607; 82746; 82962; 83036; 83540; 83550; 83605; 83735; 84100; 84145; 84439; 84443; 84484; 85025; 85379; 85651; 86038; 86160; 86705; 86709; 86803; 87340; 99285; J1650; J3370